=== PATIENT | male | born 2000 | race Caucasian/White ===

== ENCOUNTER → 2020-07-13 11:16 | Outpatient (CLI) | payer OTHER, SELFPAY ==
--- NOTE | ~2020-07-13 | CT_ITS ---
EXAMINATION: CT abdomen pelvis wo con DATE: 07/13/2020 11:31 INDICATION: Right flank pain and hematuria TECHNIQUE: Computed tomography (CT) of the abdomen and pelvis was performed without intravenous contr ast. The dose-length product (DLP) was 188.06 mGy-cm. Automated exposure control and iterative recons truction technique were employed. COMPARISON: None FINDINGS: The lung bases are clear. The heart size is normal. The liver, spleen, pancreas, gallbladde r, and adrenal glands are normal. The kidneys are unremarkable. No stones are identified in the kidne ys, ureters, or bladder. There is no hydronephrosis or hydroureter. No pathologically enlarged abdomi nal or pelvic lymph nodes are identified. There is no free intraperitoneal gas or evidence of bowel o bstruction. A large volume of colonic stool is present. The appendix is unremarkable. IMPRESSION: 1. Constipation. 2. No urinary tract calculi identified. Reviewed, dictated and finalized at location A.
== END ==
PROVIDERS: PCP Student in an Organized Health Care Education/Training Program; Visit Provider Student in an Organized Health Care Education/Training Program
DX: R10.9 Unspecified abdominal pain (principal); K59.00 Constipation, unspecified
CPT/HCPCS: 74176

== ENCOUNTER 2025-03-09 17:35 | Emergency (ER) | payer OTHER, SELFPAY ==
--- NOTE | ~2025-03-09 | XR_ITS ---
XR ribs LT 2V w CXR 2V Ordering provider: Ginger Godoy PA-C History: . fall, rib pain . Comparison: FINDINGS: BONES: Fracture of the anterior and of the left 10th rib is highly suggestive. Possible nondisplaced fracture of the left fifth rib. MEDIASTINUM: The cardiac silhouette is not enlarged. LUNGS: No infiltrates, effusions or pneumothorax. OTHER: No free air under the diaphragm. IMPRESSION: Possible fracture of the left fifth and 10th ribs. Clinical correlation and follow-up advised. No acute cardiopulmonary findings. Reviewed, dictated and finalized at location A. IMPRESSION: Possible fracture of the left fifth and 10th ribs. Clinical correlation and f ollow-up advised. No acute cardiopulmonary findings.
[2025-03-09 17:53] VITALS: BP 102/61; PULSE 78; RESP 16; TEMP 36.7; O2SAT 98
--- OUTSIDE RECORDS SUMMARY | 2025-03-09 17:57 | XMS_ITS | Encounter Summary ---
Author Organization [facility] Address [address] [place] [address] Care Team Providers Care Data Operations Leader Name Role Phone Salvador Hartley MD Unavailable [phone] Salvador Hartley MD Primary Care Provider [phone] Encounter Details Date Type Department Care Team (Late st Contact Info) Description 08/15/2019 Refill [facility] - Pediatrics [address] [place] [address] Salvador Hartley MD [address] [address] Social History Tobacco Use Types Packs/Day Years Used Date Smoking Tobacco: Never Smokeless Tobacco: Never Alcohol Use Standard Drinks/Week Comments Not Asked 0 (1 standard drink = 0.6 oz pur e alcohol) Sex and Gender Information Value Date Recorded Sex Assigned at Not on file 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 * Telephone Encounter - Daja Arnold MD - 08/15/2019 3:53 PM CDT Please refill medication x 1 month as requested. * Telephone Encounter - José Miguel Garg - 08/15/2019 1:40 PM CDT . Vikas Salas Deondre is in need of His Requested Prescriptions Pending Prescriptions Disp Refills ??? methylphenidate CR (CONCERTA) 36 MG tablet 30 tablet 0 Sig: Take 1 tablet by mouth every morning Person calling for the refill: Mother Last office visit 06/20/19 Next Appointment scheduled: Visit date not found Last Refill for this medication 07/01/19 Does patient have any new allergies since last office visit? No Was the pharmacy verified? Yes If this is a controlled substance was the Last 4 of SSN verified? NO, er contact (If unable to verify last 4 of SSN transfer to the clinic for further review) documented in this encounter Plan of Treatment Not on file documented as of this encounter Goals Goal Patient Goal Type Associated Problems Recent Progress Patient-Stated? Author Use safety retraint in car Lifestyle On track(2018 4:00 PM CDT) No Danica Felder Take recommended medication(s) Lifestyle On track(2018 4:00 PM CDT) No Sara Woodall documented as of this encounter Visit Diagnoses Diagnosis Attention deficit hyperactivity disorder (ADHD), combined type documented in this encounter Care Teams Data Operations Leader Relationship Specialty Start Date End Date Salvador Hartley MD PCP - Pediatrics 10/04/09 Salvador Hartley MD PCP - General Pediatrics 09/29/14 documented as of this encounter
--- OUTSIDE RECORDS SUMMARY | 2025-03-09 17:57 | XMS_ITS | Clinical Summary ---
Author Organization [facility] Address [address] [place] [address] Care Team Providers Care Housekeeping Supervisor Name Role Phone Salvador Hartley MD Unavailable [phone] Salvador Hartley MD Primary Care Provider [phone] Source Comments [facility],non-owned Affiliates and Associated Physician Practices is amultiple site organization consisting of ambulatory clinics and hospital sitesin [place] and [place]. This disclosure is being madepursuant to the Care Everywhere program and may not contain all information available regarding this patient. Last updated 18.[facility] Allergies No known active allergies Medications * Be aware that medications may not be up to date on this document. Alwaysverify current medications with the patient. methylphenidate (RITALIN) 20 MG tabletIndications: Attention deficit hyperactivity disorder (ADHD), combined type Take 1 tablet by mouth once daily as needed 30 tablet 9 Active methylphenidate CR (CONCERTA) 36 MG tabletIndications: Attention deficit hyperactivity disorder (ADHD), combined type Take 1 tablet by mouth every morning 30 tablet 0 Active Active Problems Problem Noted Date Diagnosed Date Scoliosis 12/24/2018 Overview (07/03/2019): 12/24/18 Scoliosis series ordered 06/04/19 13 levoscoliosis T1-T8, 9 dextroscoliosis T12-L5 Screening for condition 05/08/2012 Overview (06/27/2018): 05/08/12 POC Lipid panel WNL 06/14/18 POC Lipid panel WNL Well child visit 05/25/2010 Overview (07/03/2019): 9 yo 05/25/10 10 yo 05/24/11 11 yo 05/08/12 12 yo 05/30/13 13 yo 05/25/14 15 yo 06/02/16 16 yo 05/14/17 17 yo 06/14/18 18 yo 06/20/19 ADHD (attention deficit hyperactivity disorder) 11/24/2009 Overview (07/03/2019): 11/24/09 Metadate CD 40 mg 02/04/10 Metadate CD 50 mg 03/30/10 Metadate CD 50 mg 05/25/10 Metadate CD 50 mg on school days, 40 mg on non school days 12/14/10 Metadate CD 50 mg on school days, 40 mg on non school days 05/24/11 Metadate CD 50 mg on school days, 40 mg on non school days 11/29/11 Metadate CD 50 mg on school days, 40 mg on non school days 05/08/12 Metadate CD 50 mg on school days, 40 mg on non school days 11/13/12 Focalin XR 30 mg - RTC 1 mo 01/29/13 Focalin XR 30 mg - RTC 6 mos 05/30/13 Focalin XR 30 mg - RTC 6 mos 11/24/13 Focalin XR 35 mg - RTC 2 mos 03/10/14 Focalin XR 35 mg - Mom will call when school is over and we will discuss changing meds. 05/25/14 Concerta 27 mg - RTC 1 mo 06/25/14 Concerta 36 mg - RTC 1 mo 08/11/14 Concerta 36 mg - RTC 6 mo 03/15/15 Concerta 36 mg - RTC 6 mo 09/23/15 Concerta 36 mg q am, Ritalin 10 mg q pm prn 06/02/16 Concerta 36 mg q am, Ritalin 10 mg q pm prn, RTC 6 mo 12/04/16 Concerta 36 mg q am, Ritalin 10 mg q pm prn 11/23/17 Concerta 36 mg q am, Ritalin 20 mg q pm prn, RTC 6 mo 06/14/18 Concerta 36 mg q am, Ritalin 20 mg q pm prn, RTC 6 mo 12/24/18 Concerta 36 mg q am, Ritalin 20 mg q pm prn, RTC 6 mo 06/20/19 Concerta 36 mg q am, Ritalin 20 mg q pm prn Resolved Problems Problem Noted Date Diagnosed Date Resolved Date Bronchitis, acute 10/20/2014 02/10/2016 Overview (10/29/2014): 10/20/14 Zithromax Immunizations Immunization Administration Dates Next Due DPT 11/04/2004, 2,05/08/2001,02/27,2000 HEP A PEDS 2 DOSE 05/05/2009,08/21/2007 HEP B VACCINE, PED/ADOL 02/11/2002,02/27/2001, HIB BOOSTER 02/11/2002,02/27/2001,2000 Human Papilloma Virus Nineva lent Vaccine 03/12/2019,09/20/2018,06/19/2018 INFLUENZA A [id number] VACCINE 12/29/2009, 9 INFLUENZA VACCINE, QUADR. (F LUZONE; FLULAVAL; FLUARIX; AFLURIA QUADRIVALENT; 6MO+), 0.5 ML (IIV4) 09/20/2018,10/18/2016 Influenza Nasal 09/18/2012, 1,11/02/2010,10/27,09/24/2009 JOSELIN VACCINE QUAD LAIV4 PF NASAL 09/23/2015,2012 MENINGOCOCCAL ACWY (MCV4P) VAC IM 05/14/2017, MMR 03/03/2006,11/05/2001 POLIO IPV 03/03/2006, 1,02/27/2001,12/31 PPD 11/04/2004 TDAP (7yrs+) 05/08/2012 VARICELLA 05/05/2009,02/11/2002 Family History Medical History Relation Name Comments Kidney Disease Father Other Maternal Grandfather hearing loss Heart Disease Maternal Grandmother Diabetes Paternal Grandfather Relation Name Status Comments Father Maternal Grandfather Maternal Grandmother Paternal Grandfather Social History Tobacco Use Types Packs/Day Years Used Date Smoking Tobacco: Never Smokeless Tobacco: Never Alcohol Use Standard Drinks/Week Comments Not Asked 0 (1 standard drink = 0.6 oz pur e alcohol) Sex and Gender Information Value Date Recorded Sex Assigned at Not on file 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 Gender Identity Not on file Sexual Orientation Not on file Last Filed Vital Signs Vital Sign Reading Time Taken Comments Blood Pressure 116/78 06/20/2019 4:00 PM CDT Pulse 78 12/24/2018 3:57 PM PARTY PLAN SALES AGENT Temperature 36.6 C (97.8 F) 06/20/2019 4:00 PM CDT Respiratory Rate - - Oxygen Saturation 99% 12/09/2018 3:44 PM PARTY PLAN SALES AGENT Inhaled Oxygen Concentration - - Weight 57.2 kg (126 lb) 06/20/2019 4:00 PM CDT Height 177.3 cm (5' 9.8 ) 06/20/2019 4:00 PM CDT Body Mass Index 18.18 06/20/2019 4:00 PM CDT Plan of Treatment Health Maintenance Due Date Last Done Comments HIV SCREENING 2015 HEPATITIS C SCREENING 10/26/2018 DTAP/TDAP/TD VACCINES (7 - Td or Tdap) 05/08/2022 05/08/2012, 11/04/2004, 02/11/2002, Additional history exists COVID-19 VACCINE ( season) 2024 DEPRESSION SCREENING 11/26/2024 INFLUENZA VACCINE (Season Ended) 2025 09/20/2018, 10/18/2016, 09/23/2015, Additional history exists ZOSTER VACCINE (1 of 2) 2050 HEPATITIS B VACCINE Completed 02/11/2002, 02/27/2001, 2000 HIB VACCINE Completed 02/11/2002, 02/2001, 2000 MENINGOCOCCAL GROUPS A/C/Y/W VACCINE Completed 05/14/2017, 05/08/2012 HPV VACCINE Completed 03/12/2019, 08/27, 06/19/2018 MENINGOCOCCAL (Group B) VACCINE SHARED DECISION-MAKING Aged Out No longer eligible based on patient's age to complete this topic PNEUMOCOCCAL VACCINE Aged Out No long er eligible based on patient's age to complete this topic Goals Goal Patient Goal Type Associated Problems Recent Progress Patient-Stated? Author Use safety retraint in car Lifestyle On track(2018 4:00 PM CDT) No Danica Felder Take recommended medication(s) Lifestyle On track(2018 4:00 PM CDT) No Sara Woodall Insurance [facility] Care Teams Housekeeping Supervisor Relationship Specialty Start Date End Date Salvador Hartley MD PCP - Pediatrics 10/04/09 Salvador Hartley MD PCP - General Pediatrics 09/29/14
--- OUTSIDE RECORDS SUMMARY | 2025-03-09 17:57 | XMS_ITS | Clinical Summary ---
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 Gender Identity Not on file Sexual Orientation Not on file Plan of Treatment Health Maintenance Due Date Last Done Comments Hepatitis C Virus (HCV) Screening 2000 TdaP Immunization 2000 Hepatitis B Immunization (1 of 3 - 19+ 3-dose series) 2019 Influenza Immunization (#1) 07/27/202408/27, 02/04/2020, 09/20/2018, Additional history exists SARS-COV-2 Immunization ( - 2023- season) 2024 Respiratory Syncytial Virus (RSV) Immunization (Adult) (1 - 1-dose 75+ series) 2075 Meningococcal Immunization (ACWY) Completed 05/14/2017 Human Papillomavirus (HPV) Immunization Completed 03/12/2019, 09/20/2018, 06/19/2018 Meningococcal B Immunization Discontinued 08/11/2020, 02/04/2020 Pneumococcal Immunization Combined Aged Out No longer eligible based on patient's age to complete this topic Rotavirus Immunization Aged Out No lo nger eligible based on patient's age to complete this topic
--- OUTSIDE RECORDS SUMMARY | 2025-03-09 17:57 | XMS_ITS | Encounter Summary ---
Author Organization [facility] Address [address] [place] [address] Care Team Providers Care Chief Cloth Finishing Range Operator Name Role Phone Salvador Hartley MD Unavailable [phone] Salvador Hartley MD Primary Care Provider [phone] Reason for Visit * Reason Onset Date Comments MEDICATION REFILL 11/04/2019 Encounter Details Date Type Department Care Team (Late st Contact Info) Description 11/04/2019 Refill [facility] - Pediatrics [address] [place] [address] Salvador Hartley MD [address] [address] MEDICATION REFILL Social History Tobacco Use Types Packs/Day Years Used Date Smoking Tobacco: Never Smokeless Tobacco: Never Alcohol Use Standard Drinks/Week Comments Not Asked 0 (1 standard drink = 0.6 oz pur e alcohol) Sex and Gender Information Value Date Recorded Sex Assigned at Not on file 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 RAM AND RESEARCH COORDINATOR * Telephone Encounter - Marsha Garza - 11/04/2019 10:35 AM CST Vikas Mendosa is in need of His Requested Prescriptions Pending Prescriptions Disp Refills ??? methylphenidate CR (CONCERTA) 36 MG tablet 30 tablet 0 Sig: Take 1 tablet by mouth every morning Person calling for the refill: mom Last office visit 06/20/19 Next Appointment scheduled: Visit date not found Last Refill for this medication 10/02/19 Does patient have any new allergies since last office visit? No Was the pharmacy verified? Yes If this is a controlled substance was the Last 4 of SSN verified? NO EMERGENCY CONTACT VERIFIED (If unable to verify last 4 of SSN transfer to the clinic for further review) RAM AND RESEARCH COORDINATOR documented in this encounter Plan of Treatment [...] type documented in this encounter Care Teams Chief Cloth Finishing Range Operator Relationship Specialty Start Date End Date Salvador Hartley MD PCP - Pediatrics 10/04/09 Salvador Hartley MD PCP - General Pediatrics 09/29/14 documented as of this encounter
--- OUTSIDE RECORDS SUMMARY | 2025-03-09 17:57 | XMS_ITS | Clinical Summary ---
Author Organization [facility] Address formerly [facility] [place] [address] Care Team Providers Care Packing Machine Pilot Can Router Name Role Phone Kimani Perez DO Primary Care Provider + Allergies Active Allergy Reactions Criticality Noted Date Comments Sulfamethoxazole-Trimethoprim Itching 2022 Medications FLUoxetine (PROZAC) 40 MG capsuleIndicati ons:Major depressive disorder with single episode, in partial remission Take 1 capsule (40 mg total) by mouth daily. 90 capsule 1 07/17/2024 Active amoxicillin-cla vulanate (AUGMENTIN) 875-125 MG tabletIndicatio ns:Acute non-recurrent frontal sinusitis Take 1 tablet (875 mg total) by mouth 2 (two) times daily for 10 days. 20 tablet 02/03/2025 02/14/20 25 Active Problems Problem Noted Date Diagnosed Date BMI less than 19,adult 05/05/2021 Major depressive disorder wi th single episode, in partial remission 05/05/2021 Dysuria 06/23/2020 Unintended weight loss 06/23/2020 Scoliosis 12/24/2018 Overview (02/04/2020): 12/24/18 Scoliosis series ordered 06/04/19 13 levoscoliosis T1-T8, 9 dextroscoliosis T12-L5 Attention deficit hyperactivity disorder (ADHD) 11/24/2009 Overview (02/04/2020): 11/24/09 Metadate CD 40 mg 02/04/10 Metadate [...] am, Ritalin 20 mg q pm prn Encounters Date Type Department Care Team Description 02/03/2025 1:40 PM CDT Office Visit [facility] Family & Internal Medicine - [address] [address] Kimani Perez, DO Cough (The patient states developed cough on 01/24/2025. The patient states it hurts to cough but has not had any other sx. ) 02/03/2025 Travel from Last 3 Months Immunizations Immunization Administration Dates Next Due Dtp 11/04/2004, 2,05/08/2001,02/27,2000 FLUCELVAX (ccIIV3, TRIVALENT, 0.5mL) 09/01/2024 Flumist (Intranasal LAIV4) 09/23/2015,09/18/2013 Flumist (Intranasal) 09/18/2012 Fluzone 6 Months+ Quad (0.5 mL Prefilled Syringe) 10/12/2022,09/22/2020,02/04/2020 H1N1 Injectable 2009 Influenza 12/29/2009,2008 HPV GARDASIL 9-VALENT 03/12/2019,09/20/2018,05/27 Hepatitis A Vaccine - 2 Dose 05/05/2009,08/21/20 07 Hepatitis B Pediatric 02/11/2002,02/27/2001,03/2001 Hib Vaccine, Prp-D 02/11/2002,02/27/2001, 001 Influenza (FluMist) 09/23/2015, 3,09/18/2012,09/13,11/02/2010,10/27/2009,09/24/2009 Influenza Adult (Generic) 10/19/2021,,02/04/2020,09/20,10/18/2016 MMR (Generic) 03/03/2006,11/05/2001 Menactra 05/14/2017 Meningcoccal Group B (Trumen ba)(aka Meningitis) 08/11/2020,02/04/2020 Meningococcal Vac A,C,Y,W-135 Sc 05/14/2017,04/26 PFIZER COVID-19 BIVALENT (12 +) mRNA, LNP-S, PF, 30 MCG/0.3 ML DOSE 11/02/2022 Polio Ipv (Generic) 03/03/2006, 1,02/27/2001,12/31 Tdap (Adacel) 11/02/2022 Tdap (Generic) 05/08/2012 Varicella Vaccine 05/05/2009,02/11/2002 Family History Medical History Relation Comments Cancer Father lymphoma Diabetes Father lymphoma Father Heart Disease Maternal Grandmother Hypertension Mother Diabetes Paternal Grandfather Cancer Paternal Grandmother liver Relation Status Comments Father Maternal Grandmother Mother Paternal Grandfather Paternal Grandmother Social History Tobacco Use Types Packs/Day Years Used Date Smoking Tobacco: Never Smokeless Tobacco: Never Tobacco Cessation:Counseling Given: Not Answered Alcohol Use Standard Drinks/Week Comments Not Currently 0 (1 standard drink = 0.6 oz pur e alcohol) 1 x per month AUDIT-C Answer Date Recorded Frequency of Alcohol Consumption Monthly or less 02/04/2020 Average Number of Drinks 3 or 4 020 Frequency of Binge Drinking Never 01/24 PHQ-2 Answer Date Recorded Patient Health Questionnaire-2 Score 0 02/03/2025 Sex and Gender Information Value Date Recorded Sex Assigned at Male 02/03/2025 1:39 PM CDT Legal Sex Male 7:22 PM CDT Gender Identity Male 02/03/2025 1:39 PM CDT Sexual Orientation Not on file Occupation Industry Job Start Date Job End Date Not on file Not on file Not on file Not on file Last Filed Vital Signs Vital Sign Reading Time Taken Comments Blood Pressure 104/66 02/03/2025 1:41 PM CDT Pulse 111 02/03/2025 1:41 PM CDT Temperature 37.5 C (99.5 F) 02/03/2025 1:41 PM CDT Respiratory Rate 16 02/03/2025 1:41 PM CDT Oxygen Saturation 97% 02/03/2025 1:41 PM CDT Inhaled Oxygen Concentration - - Weight 60.3 kg (133 lb) 02/03/2025 1:41 PM CDT Height 180.3 cm (5' 11 ) 02/03/2025 1:41 PM CDT Body Mass Index 18.55 02/03/2025 1:41 PM CDT Plan of Treatment Health Maintenance Due Date Last Done Comments Annual Physical 02/17/2024 02/16/2023, 05/05/2021 COVID-19 Vaccine (6 - Pfizer risk season) 2025 09/01/2024, 11/02/2022, 12/24/2021, Additional history exists Postponed from 03/02/2025 (Future Appointment) DTaP, Tdap and Td Vaccines (3 - Td or Tdap) 11/02/2032 11/02/2022, 05/08/2012, 11/04/2004, Additional history exists Hepatitis B Vaccines Completed 02/11/2002, 02/27/2001, 2000 Meningococcal Vaccine Aged Out 05/14/2017 , 05/14/2017, 05/08/2012 No longer eligible based on patient's age to complete this topic HPV Vaccines Completed 03/12/2019, 08/27, 06/19/2018 Meningococcal B Vaccine Completed 08/11/2020, 02/03 Hepatitis C Completed 06/01/2021 PHQ-2 (Physician [place]) Completed 02/03/2025 Pneumococcal Vaccine: Pediatrics (0 to 5 Years) and At-Risk Patients (6 to 49 Years) Aged Out No longer eligible based on patient's age to complete this topic RSV Immunizations Under 20 Months Aged Out No longer eligible based on patient's age to complete this topic Procedures Procedure Name Priority Date/Time Associated Diagnosis Comments TSH W/REFLEX Routine 02/03/2025 1:59 PM CDT Annual physical exam Screening for endocrine, metabolic and immunity disorder CBC W/DIFF AUTOMATED Routine 02/03/2025 1:59 PM CDT Annual physical exam Screening for endocrine, metabolic and immunity disorder COMPREHENSIVE METABOLIC PANEL Routine 02/03/2025 1:59 PM CDT Annual physical exam Screening for endocrine, metabolic and immunity disorder COLLECTION VENOUS BLOOD VENIPUNCTURE Routine 02/03/2025 1:48 PM CDT Annual physical exam Screening for endocrine, metabolic and immunity disorder HEPATITIS C ANTIBODY W/RFX TO HCV RNA Routine 06/01/2021 9:53 AM CDT from Last 3 Months or Most Recently Relevant to Health Maintenance Results * TSH W/REFLEX (02/03/2025 1:59 PM CDT) TSH 0.467 0.358 - 3.740 uIU/ML 02/03/2025 7:45 PM CDT -[facility] 02/03/2025 1:59 PM CDT Kimanirobby Perez DO LABORATORY [facility] [address] [place] [address], * (ABNORMAL) COMPREHENSIVE METABOLIC PANEL (02/03/2025 1:59 PM CDT) SODIUM S/P/B 141 136 - 145 MMOL/L 02/03/2025 7:45 PM CDT -[facility] POTASSIUM S/P/B 4.1 3.5 - 5.1 MMOL/L 02/03/2025 7:45 PM CDT [facility] CHLORIDE S/P/B 102 98 - 107 MMOL/L 02/03/2025 7:45 PM CDT -[facility] CO2 30.0 21 - 32 MMOL/L 02/03/2025 7:45 PM CDT -[facility] GLUCOSE 104(H) 70 - 99 MG/DL 02/03/2025 7:45 PM CDT [facility] BUN 7 7 - 18 MG/DL 02/03/2025 7:45 PM CDT -[facility] CREATININE S/P/B 0.92 0.70 - 1.30 MG/DL 02/03/2025 7:45 PM CDT [facility] CALCIUM S/P/B 9.1 8.4 - 10.5 MG/DL 02/03/2025 7:45 PM CDT -[facility] BILIRUBIN TOTAL S/P/B 0.3 0.2 - 1.0 MG/DL 02/03/2025 7:45 PM CDT [facility] ALKALINE PHOSPHATASE S/P/B 66 45 - 115 U/L 02/03/2025 7:45 PM CDT [facility] AST 15 15 - 37 U/L 02/03/2025 7:45 PM CDT [facility] ALT 21 16 - 63 U/L 02/03/2025 7:45 PM CDT [facility] TOTAL PROTEIN S/P/B 7.0 6.4 - 8.2 G/DL 02/03/2025 7:45 PM CDT [facility] ALBUMIN S/P/B 4.0 3.4 - 5.0 G/DL 02/03/2025 7:45 PM CDT [facility] ANION GAP 9.0 5 - 15 MMOL/L 02/03/2025 7:45 PM T [facility] Comment:REFERENCE RANGE NOT ESTABLISHED OSMOLALITY (CALC) 290 MOSM/KG 025 7:45 PM T [facility] Comment:REFERENCE RANGE NOT ESTABLISHED GFR ESTIMATE >90 >90 ML/MIN/1. 73 M2 02/03/2025 7:45 PM T [facility] GFR NOTES GFR REFERENCE S: 02/03/2025 7:45 PM T [facility] Comment: THE ESTIMATED GFR IS CALCULATED USING THE 2020 CKD-EPI EQUATION. THE FOLLOWING CATEGORIES FOR GRADING RENAL FUNCTION ARE RECOMMENDED BY THE INTERNATIONAL SOCIETY OF NEPHROLOGY (KDIGO 2012 CLINICAL PRACTICE GUIDELINE). G1,NORMAL OR HIGH: >89 ml/min/1.73 m2 G2,MILDLY DECREASED: 60-89 ml/min/1.73 m2 G3A,MILDLY TO MODERATELY DECREASED: 45-59 ml/min/1.73 m2 G3B,MODERATELY TO SEVERELY DECREASED: 30-44 ml/min/1.73 m2 G4,SEVERELY DECREASED: 15-29 ml/min/1.73 m2 G5,KIDNEY FAILURE: <15 ml/min/1.73 m2 02/03/2025 1:59 PM CDT Kimani Perez DO LABORATORY Final Re sult -[facility] [address] [place] [address], * (ABNORMAL) CBC W/DIFF AUTOMATED (02/03/2025 1:59 PM CDT) [facility] WBC 8.22 4.00 - 10.80 x10'3/uL 02/03/2025 7:59 PM CDT -[facility] RBC 4.74 4.50 - 6.10 x10'6/uL 02/03/2025 7:59 PM CDT [facility] HGB 14.5 13.0 - 18.0 G/DL 02/03/2025 7:59 PM CDT [facility] HCT 43.4 37.0 - 52.0 % 02/03/2025 7:59 PM CDT [facility] MCV 91.6 78.0 - 100.0 FL 02/03/2025 7:59 PM CDT [facility] MCH 30.6 27.0 - 31.0 PG 02/03/2025 7:59 PM CDT [facility] MCHC 33.4 33.0 - 36.0 G/DL 02/03/2025 7:59 PM CDT [facility] RDW 12.3 11.5 - 14.5 % 02/03/2025 7:59 PM CDT [facility] PLT 329 150 - 350 x10'3/uL 02/03/2025 7:59 PM CDT [facility] MPV 10.5(H) 7.4 - 10.4 FL 02/03/2025 7:59 PM CDT [facility] DIFFERENTIAL TYPE AUTOMATED DIFFERENTIAL 02/03/2025 7:59 PM CDT [facility] NEUTROPHILS % 69.1 % 02/03/2025 7:59 PM CDT [facility] LYMPHOCYTES % 20.2 % 02/03/2025 7:59 PM CDT [facility] MONOCYTES % 5.2 % 02/03/2025 7:59 PM CDT [facility] EOSINOPHILS % 4.7 % 02/03/2025 7:59 PM CDT [facility] BASOPHILS % 0.4 % 02/03/2025 7:59 PM CDT [facility] IMMATURE GRANS % 0.4 % 02/03/2025 7:59 PM CDT [facility] ABS. NEUTROPHILS 5.68 1.60 - 8.30 x10'3/uL 02/03/2025 7:59 PM CDT [facility] ABS. LYMPHOCYTES 1.66 0.80 - 4.70 x10'3/uL 02/03/2025 7:59 PM CDT [facility] ABS. MONOCYTES 0.43 0.00 - 1.50 x10'3/uL 02/03/2025 7:59 PM CDT [facility] ABS. EOSINOPHILS 0.39 0.00 - 0.40 x10'3/uL 02/03/2025 7:59 PM CDT [facility] ABS. BASOPHILS 0.03 0.00 - 0.20 x10'3/uL 02/03/2025 7:59 PM CDT [facility] ABS. IMMATURE GRANULOCYTES 0.03 0.00 - 0.03 x10'3/uL 02/03/2025 7:59 PM CDT [facility] 02/03/2025 1:59 PM CDT us Kimani Perez DO LABORATORY Final Re sult -[facility] [address] [place] [address], * HEPATITIS C ANTIBODY W/RFX TO HCV RNA (06/01/2021 9:53 AM CDT) HEPATITIS C AB NON-REACTI VE NON-REACT GLENDY [facility] SIGNAL TO CUTOFF 0.00 <[address] [facility] Comment: HCV antibody was non-reactive. There is no laboratory evidence of HCV infection. In most cases, no further action is required. However, if recent HCV exposure is suspected, a test for HCV RNA (test code 23904) is suggested. For additional information please refer to http://education.Nitero/faq/SGQ88o9 (This link is being provided for informational/ educational purposes only.) 06/01/2021 9:53 AM CDT 06/01/2021 9:56 AM CDT Narrative [facility] - 06/02/2021 8:48 AM CDT FASTING:NO FASTING: NO Kimani Perez DO LABORATORY Final Re sult [facility] [address] [place] [address] from Last 3 Months or Most Recently Relevant to Health Maintenance Insurance [place] [address] Care Teams Packing Machine Pilot Can Router Relationship Specialty Start Date End Date Kimani Perez DO [address] [place] [id number] PCP - General FAMILY PRACTICE 02/04/20
--- OUTSIDE RECORDS SUMMARY | 2025-03-09 18:51 | XMS_ITS | Encounter Summary ---
Author Organization [facility] Address [address] [place] [address] Care Team Providers Care Manager Of Training Name Role Phone Salvador Hartley MD Unavailable [phone] Salvador Hartley MD Primary Care Provider Encounter Details Date Type Department Care Team (Late st Contact Info) Description 08/15/2019 Refill [facility] - Pediatrics 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
--- OUTSIDE RECORDS SUMMARY | 2025-03-09 18:51 | XMS_ITS | Clinical Summary ---
Author Organization [facility] Address [address] [place] [address] Care Team Providers Care Drawing Frame Tender Name Role Phone Salvador Hartley MD Unavailable Salvador Hartley MD Primary Care Provider [phone] Source Comments [facility],non-owned Affiliates and Associated Physician Practices is amultiple site organization consisting of ambulatory clinics and hospital sitesin [place], [place], [place] and [place]. This disclosure is being madepursuant to the Care Everywhere program and may not contain all information available regarding this patient. Last updated 18.[facility] Allergies No known active allergies Medications * [...] Virus Nineva lent Vaccine 03/12/2019,09/20/2018,06/19/2018 INFLUENZA A [id number] VACCINE 12/29/2009, 9 INFLUENZA VACCINE, QUADR. 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 Gender Identity Not on file Sexual Orientation Not on file Last Filed Vital Signs Vital Sign Reading Time Taken Comments Blood Pressure 116/78 06/20/2019 4:00 PM CDT Pulse 78 12/24/2018 3:57 PM MATERIALS SCIENTIST Temperature 36.6 C (97.8 F) 06/20/2019 4:00 PM CDT Respiratory Rate - - Oxygen Saturation 99% 12/09/2018 3:44 PM MATERIALS SCIENTIST Inhaled Oxygen Concentration - - Weight 57.2 [...] 4:00 PM CDT) No Sara Woodall Insurance [facility] Care Teams Drawing Frame Tender Relationship Specialty Start Date End Date Salvador Hartley MD PCP - Pediatrics 10/04/09 Salvador Hartley MD PCP - General Pediatrics 09/29/14
--- OUTSIDE RECORDS SUMMARY | 2025-03-09 18:51 | XMS_ITS | Encounter Summary ---
Author Organization [facility] Address [address] [place] [address] Care Team Providers Care Cigar Wrapper Tender Automatic Name Role Phone Salvador Hartley MD Unavailable [phone] Salvador Hartley MD Primary Care Provider [phone] Reason for Visit * Reason Onset Date Comments MEDICATION REFILL 11/04/2019 Encounter Details Date Type Department Care Team (Late st Contact Info) Description 11/04/2019 Refill [facility] - Pediatrics [address] [place] [address] Salvador Hartley MD [address] [address] MEDICATION REFILL Social History Tobacco Use Types Packs/Day Years Used Date Smoking Tobacco: Never Smokeless Tobacco: Never Alcohol Use Standard Drinks/Week Comments Not Asked 0 (1 standard drink = 0.6 oz pur e alcohol) Sex and Gender Information Value Date Recorded Sex Assigned at Not on file 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 PUTTER UP AND TICKET PREPARER * Telephone Encounter - Marsha Garza - [...] transfer to the clinic for further review) PUTTER UP AND TICKET PREPARER documented in this encounter Plan of Treatment [...] type documented in this encounter Care Teams Cigar Wrapper Tender Automatic Relationship Specialty Start Date End Date Salvador Hartley MD PCP - Pediatrics 10/04/09 Salvador Hartley MD PCP - General Pediatrics 09/29/14 documented as of this encounter
--- OUTSIDE RECORDS SUMMARY | 2025-03-09 18:51 | XMS_ITS | Clinical Summary ---
Author Organization [facility] Address [facility] [place] [address] Care Team Providers Care Loan Interviewer Mortgage Name Role Phone Kimani Perez DO Primary [...] Description 02/03/2025 1:40 PM CDT Office Visit [facility] Family & Internal Medicine - [address] [address] Kimani Perez, DO Cough (The [...] 02/03 Hepatitis C Completed 06/01/2021 PHQ-2 (Physician [place]) Completed 02/03/2025 Pneumococcal Vaccine: Pediatrics (0 to [...] - 3.740 uIU/ML 02/03/2025 7:45 PM CDT -[facility] 02/03/2025 1:59 PM CDT Kimanirobby Perez DO LABORATORY Final [facility] [address] [place] [address], * (ABNORMAL) COMPREHENSIVE METABOLIC PANEL (02/03/2025 1:59 PM CDT) SODIUM S/P/B 141 136 - 145 MMOL/L 02/03/2025 7:45 PM CDT -[facility] POTASSIUM S/P/B 4.1 3.5 - 5.1 MMOL/L 02/03/2025 7:45 PM CDT [facility] CHLORIDE S/P/B 102 98 - 107 MMOL/L 02/03/2025 7:45 PM CDT -[facility] CO2 30.0 21 - 32 MMOL/L 02/03/2025 7:45 PM CDT -[facility] GLUCOSE 104(H) 70 - 99 MG/DL 02/03/2025 7:45 PM CDT [facility] BUN 7 7 - 18 MG/DL 02/03/2025 7:45 PM CDT -[facility] CREATININE S/P/B 0.92 0.70 - 1.30 MG/DL 02/03/2025 7:45 PM CDT [facility] CALCIUM S/P/B 9.1 8.4 - 10.5 MG/DL 02/03/2025 7:45 PM CDT -[facility] BILIRUBIN TOTAL S/P/B 0.3 0.2 - 1.0 MG/DL 02/03/2025 7:45 PM CDT [facility] ALKALINE PHOSPHATASE S/P/B 66 45 - 115 U/L 02/03/2025 7:45 PM CDT [facility] AST 15 15 - 37 U/L 02/03/2025 7:45 PM CDT [facility] ALT 21 16 - 63 U/L 02/03/2025 7:45 PM CDT [facility] TOTAL PROTEIN S/P/B 7.0 6.4 - 8.2 G/DL 02/03/2025 7:45 PM CDT [facility] ALBUMIN S/P/B 4.0 3.4 - 5.0 G/DL 02/03/2025 7:45 PM CDT [facility] ANION GAP 9.0 5 - 15 MMOL/L 02/03/2025 7:45 PM T [facility] Comment:REFERENCE RANGE NOT ESTABLISHED OSMOLALITY (CALC) 290 MOSM/KG 025 7:45 PM T [facility] Comment:REFERENCE RANGE NOT ESTABLISHED GFR ESTIMATE >90 >90 ML/MIN/1. 73 M2 02/03/2025 7:45 PM T [facility] GFR NOTES GFR REFERENCE S: 02/03/2025 7:45 PM T [facility] Comment: THE ESTIMATED GFR IS CALCULATED [...] DO LABORATORY Final Re sult -[facility] [address] [place] [address], * (ABNORMAL) CBC W/DIFF AUTOMATED (02/03/2025 1:59 PM CDT) [facility] WBC 8.22 4.00 - 10.80 x10'3/uL 02/03/2025 7:59 PM CDT -[facility] RBC 4.74 4.50 - 6.10 x10'6/uL 02/03/2025 7:59 PM CDT [facility] HGB 14.5 13.0 - 18.0 G/DL 02/03/2025 7:59 PM CDT [facility] HCT 43.4 37.0 - 52.0 % 02/03/2025 7:59 PM CDT [facility] MCV 91.6 78.0 - 100.0 FL 02/03/2025 7:59 PM CDT [facility] MCH 30.6 27.0 - 31.0 PG 02/03/2025 7:59 PM CDT [facility] MCHC 33.4 33.0 - 36.0 G/DL 02/03/2025 7:59 PM CDT [facility] RDW 12.3 11.5 - 14.5 % 02/03/2025 7:59 PM CDT [facility] PLT 329 150 - 350 x10'3/uL 02/03/2025 7:59 PM CDT [facility] MPV 10.5(H) 7.4 - 10.4 FL 02/03/2025 7:59 PM CDT [facility] DIFFERENTIAL TYPE AUTOMATED DIFFERENTIAL 02/03/2025 7:59 PM CDT [facility] NEUTROPHILS % 69.1 % 02/03/2025 7:59 PM CDT [facility] LYMPHOCYTES % 20.2 % 02/03/2025 7:59 PM CDT [facility] MONOCYTES % 5.2 % 02/03/2025 7:59 PM CDT [facility] EOSINOPHILS % 4.7 % 02/03/2025 7:59 PM CDT [facility] BASOPHILS % 0.4 % 02/03/2025 7:59 PM CDT [facility] IMMATURE GRANS % 0.4 % 02/03/2025 7:59 PM CDT [facility] ABS. NEUTROPHILS 5.68 1.60 - 8.30 x10'3/uL 02/03/2025 7:59 PM CDT [facility] ABS. LYMPHOCYTES 1.66 0.80 - 4.70 x10'3/uL 02/03/2025 7:59 PM CDT [facility] ABS. MONOCYTES 0.43 0.00 - 1.50 x10'3/uL 02/03/2025 7:59 PM CDT [facility] ABS. EOSINOPHILS 0.39 0.00 - 0.40 x10'3/uL 02/03/2025 7:59 PM CDT [facility] ABS. BASOPHILS 0.03 0.00 - 0.20 x10'3/uL 02/03/2025 7:59 PM CDT [facility] ABS. IMMATURE GRANULOCYTES 0.03 0.00 - 0.03 x10'3/uL 02/03/2025 7:59 PM CDT [facility] 02/03/2025 1:59 PM CDT us Kimani Perez DO LABORATORY Final Re sult -[facility] [address] [place] [address], * HEPATITIS C ANTIBODY W/RFX TO HCV [...] a test for HCV RNA (test code 06849) is suggested. For additional information please refer to http://education.DuraSweeper/faq/NSO13o4 (This link is being provided for informational/ educational purposes only.) 06/01/2021 9:53 AM CDT 06/01/2021 9:56 AM CDT Narrative [facility] - 06/02/2021 8:48 AM CDT FASTING:NO FASTING: NO Kimani Perez DO LABORATORY Final Re sult [facility] [address] [place] [address] from Last 3 Months or Most Recently Relevant to Health Maintenance Insurance [facility] Care Teams Loan Interviewer Mortgage Relationship Specialty Start Date End Date Kimani Perez DO [address] [place] [id number] PCP - General FAMILY PRACTICE 02/04/20
--- OUTSIDE RECORDS SUMMARY | 2025-03-09 18:51 | XMS_ITS | Clinical Summary ---
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
--- NOTE | 2025-03-09 19:14 | ED.FALL ---
HPI - Fall General Chief Complaint: Fall Stated Complaint: fall onto left ribs Time Seen by Provider: 03/09/25 18:32 Source: patient Mode of arrival: ambulatory Limitations: no limitations History of Present Illness HPI Narrative: This is a 24-year-old male who presents to the ED for chief complaint of fall with left rib injury occurring today. Patient states that he lost his balance while walking on a board and fell directly onto a support pain. States that the being hit the left side of his ribs. States that his pain is worse with deeper breathing. Denies any further injury or LOC. Related Data Allergies Allergy/AdvReac Type Severity Reaction Status Date / Time No Known Allergies Allergy Verified 03/09/25 19:24 Review of Systems Review of Systems: All systems as dictated in HPI Exam Narrative: GENERAL: Well-appearing, well-nourished, and in no acute distress. HEAD: Normocephalic, atraumatic. EYES: PERRLA and EOMI. ENT: Nares clear, no rhinorrhea or epistaxis. Mucous membranes moist. Oropharynx without tonsillar hypertrophy exudate or other lesions. NECK: Supple. No adenopathy or masses. CHEST: Mild chest wall tenderness to the left lateral ribs. No crepitus. No flail chest signs. No respiratory distress. Clear to auscultation. No wheezes rales or rhonchi HEART: Regular rate and rhythm. No murmur heard. Normal peripheral pulses. ABDOMEN: Soft, nontender, nondistended, normal active bowel sounds. MSK: Normal range of motion. No edema. SKIN: Warm, dry, no rash. NEURO: Alert and oriented x4. No focal deficits. PSYCH: Normal mood and affect. Course Vital Signs Vital signs: Vital Signs Temperature 98.1 F 03/09/25 17:53 Pulse Rate 78 03/09/25 17:53 Respiratory Rate 16 03/09/25 17:53 Blood Pressure 102/61 03/09/25 17:53 Pulse Oximetry 98 03/09/25 17:53 Oxygen Delivery Room Air 03/09/25 17:53 Temperature 98.1 F 03/09/25 17:53 Pulse Rate 78 03/09/25 17:53 Respiratory Rate 16 03/09/25 17:53 Blood Pressure 102/61 03/09/25 17:53 Pulse Oximetry 98 03/09/25 17:53 Oxygen Delivery Room Air 03/09/25 17:53 MDM - Fall MDM Narrative Medical decision making narrative: This is a 24-year-old male who presents to the ED for chief complaint of fall with left rib injury. Vitals are normal. Exam remarkable for tenderness to the left ribs but no respiratory distress. Imaging of the chest does show possible rib fracture to the left 5th and 10th rib. There is no evidence of flail chest or significant trauma on exam. He was given incentive spirometer as well as [place] dose here. Rx for [place] for home for breakthrough pain. Instructions for rib fracture given. Patient will be discharged in stable condition. Supportive measures discussed and return precautions given. Patient is understanding and agreeable with plan for discharge with PCP follow-up. Discharge Plan Discharge Clinical Impression: Multiple fractures of ribs of left side Patient Disposition: Home Condition: Stable Instructions: Antibiotic Form, Rib Fracture (ED) Additional Instructions: Exam and imaging today do show possible rib fracture in 2 locations on the left side. Please he has incentive spirometer as directed. Use [place] for breakthrough pain. Control pain regularly with ice, Tylenol and ibuprofen. If you have any new or worsening symptoms please return to the ER for further evaluation. Patient Language: [place] Prescriptions: New hydrocodone-acetaminophen 5-325 mg tablet 1 tablet PO Q8H PRN (Reason: pain) Qty: 14 0RF Follow-up/Referrals: Ana,DO Kimani [Primary Care Provider] - Time of Disposition: 19:26
[2025-03-09] MEDS: HYDROcodone/acetaminophen (*CRX) 5-325 MG TABLET 1 TAB PO (19:25)
[2025-03-09 19:59] VITALS: BP 107/70; PULSE 74; RESP 20; TEMP 36.8; O2SAT 99
== END 2025-03-09 20:01 | disposition home or self-care (01) ==
PROVIDERS: Emergency Provider Physician Assistant; PCP Student in an Organized Health Care Education/Training Program
DX: S22.42XA Multiple fractures of ribs, left side, initial encounter for closed fracture (principal); W01.198A Fall on same level from slipping, tripping and stumbling with subsequent striking against other object, initial encounter
CPT/HCPCS: 71046; 71100; 99283; A9270